=== PATIENT | female | born 1990 | race American Indian/Alaskan Native ===

== ENCOUNTER 2025-04-03 08:46 | Emergency (ER) | payer OTHER | END 2025-04-03 09:36 | disposition home or self-care (01) | LOC: FB.ED 08:46 | DX: L20.9 Atopic dermatitis, unspecified (principal); Z91.013 Allergy to seafood; Z79.899 Other long term (current) drug therapy; Z91.09 Other allergy status, other than to drugs and biological substances | CPT/HCPCS: 99282 ==